=== PATIENT | female | born 1985 | race Caucasian/White ===

== ENCOUNTER 2019-07-27 12:05 | Emergency (ER) | payer OTHER ==
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
[2019-07-27 13:43] LABS: Appearance,Urine Cloudy (Clear); Bacteria,Urine Rare /hpf; Bilirubin,Urine Negative (Negative); Blood,Urine Negative (Negative); Color,Urine Yellow; Glucose,Urine (UA) Negative (Negative); Ketones,Urine Negative (Negative); Leukocyte Esterase,Urine Negative (Negative); Mucus,Urine Few /hpf; Nitrite,Urine Negative (Negative); Protein,Urine Trace (Negative); RBC,Urine 3 /hpf (0-5); Specific Gravity,Urine 1.027 (1.001-1.035); Squamous Epithelial Cell,Urine 8 /hpf (0-4); Urobilinogen,Urine <2.0 mg/dL (<2.0); WBC,Urine 1 /hpf (0-5)
[2019-07-27 13:59] VITALS: BP 122/72; PULSE 84; RESP 18; TEMP 98.2
== END 2019-07-27 13:58 | disposition home or self-care (01) ==
LOC: EC 12:05
DX: S30.1XXA Contusion of abdominal wall, initial encounter (principal); Z32.00 Encounter for pregnancy test, result unknown; Y04.0XXA Assault by unarmed brawl or fight, initial encounter; Y93.89 Activity, other specified; Y92.69 Other specified industrial and construction area as the place of occurrence of the external cause; Y99.0 Civilian activity done for income or pay
CPT/HCPCS: 76705; 81001; 81025; 99284

== ENCOUNTER → 2020-07-06 | Outpatient (CLI) | payer BC ==
--- NOTE | 2020-07-09 08:32 | FL ---
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 TECHNIQUE: Fluoroscopy-assisted hysterosalpingogram. Fluoroscopic guidance was provided during hyste rosalpingogram procedure performed by myself. A total of 59 seconds of fluoroscopic time was utilize d during the procedure and 7 spot images are acquired. COMPARISON: None. FINDINGS: Procedure explained to patient. Informed consent was obtained. [employer] image shows few scatt ered bilateral pelvic phleboliths. Speculum introduced using sterile technique. Cervical os was cleansed with Betadine. Balloon is infla [place]. Roughly 6 cc of Isovue 200 was injected after catheter is inserted. There is opacification of p ortion of the cervix which shows normal mucosa. There is then successful opacification of the endomet rial cavity which has triangular shape, there is marked flexion making evaluation suboptimal. No obvi ous abnormality. There is successful filling of the right fallopian tube and free spillage. There is some delay of unsuccessful pathology of the left fallopian tube and free intraperitoneal spillage. Fa llopian tubes appear within normal limits bilaterally. At this point the balloon is deflated and cath eter was withdrawn. Speculum was removed. Patient tolerated procedure well without any immediate complication. Patient was [facility] in the [facility] for short stay after procedure and discharged home in stable condition. IMPRESSION: Successful fluoroscopic hysterosalpingogram with documentation of bilateral free spillage or tube patency.
== END | disposition home or self-care (01) ==
LOC: RADUSWWP 13:24
PROVIDERS: ATTEND Obstetrics & Gynecology Obstetrics
DX: N97.9 Female infertility, unspecified (principal)
CPT/HCPCS: 58340; 74740; Q9966